=== PATIENT | male | born 1995 | race Caucasian/White ===

== ENCOUNTER 2022-05-17 09:36 | Emergency (ER) | payer MEDICAID, OTHER ==
[~2022-05-17] VITALS: Ht 175.3 cm; Wt 135.4 kg
[2022-05-17 09:40] VITALS: BP 117/54
--- NOTE | 2022-05-17 10:06 | NUR ---
ASSUMED PATIENT CARE, NURSING ASSESSMENT COMPLETED.
[2022-05-17 10:46] LABS: BASOPHILS % (AUTO) 0.4 % (0.0-2.0); EOSINOPHILS # (AUTO) 0.1 K/uL (0-0.4); EOSINOPHILS % (AUTO) 1.6 % (0.0-4.0); HEMATOCRIT 41.5 % (36-52); HEMOGLOBIN 13.9 g/dL (12.0-18.0); LYMPHOCYTES # (AUTO) 1.6 K/uL (2.0-11.5); LYMPHOCYTES % (AUTO) 20.6 % (20.5-51.1); MEAN CORPUSCULAR HEMOGLOBIN 29 pg (27-31); MEAN CORPUSCULAR HGB CONC 33 g/dL (33-37); MEAN CORPUSCULAR VOLUME 86.1 fL (80-94); MONOCYTES # (AUTO) 0.6 K/uL (0.8-1.0); MONOCYTES % (AUTO) 7.5 % (1.7-9.3); NEUTROPHILS # (AUTO) 5.5 K/uL (1.8-7.7); NEUTROPHILS % (AUTO) 69.9 % (42.2-75.2); PLATELET COUNT (AUTO) 199 K/uL (140-450); RED BLOOD CELL COUNT(AUTO) 4.81 MIL/uL (4.20-6.10); RED CELL DISTRIBUTION WIDTH 13.3 % (11.6-13.7); WHITE BLOOD COUNT (AUTO) 7.9 K/uL (4.8-10.8)
[2022-05-17 11:07] LABS: ALBUMIN 3.7 g/dL (3.4-5.0); ANION GAP 7.9 (8-16); CARBON DIOXIDE 29.8 mmol/L (21-32); CREATININE 0.8 mg/dL (0.6-1.3); POTASSIUM 3.7 mmol/L (3.5-5.1); TOTAL BILIRUBIN 0.7 mg/dL (0.0-1.0)
[2022-05-17 12:23] VITALS: BP 121/55
--- NOTE | 2022-05-17 13:12 | NUR ---
MD AT BEDSIDE, REEVALUATING PATIENT.
[2022-05-17] MEDS ORDERED: SULF-59 PO (13:18)
[2022-05-17] MEDS ORDERED: ACET-8905 PO (13:18)
--- NOTE | 2022-05-17 13:57 | NUR ---
Patient does not wish to proceed with medical care recommended by DR RIVERA. Patient given information related to possible complications, up to and including , which could occur as a result of leaving hospital at this time. Patient verbalizes understanding of risks involved leaving against medical advice. Patient has signed AMA form.
== END 2022-05-17 14:54 | disposition left against medical advice (07) ==
LOC: MED 09:36
DX: N49.2 Inflammatory disorders of scrotum (principal); Z79.899 Other long term (current) drug therapy
CPT/HCPCS: 36415; 74177; 76870; 80053; 85025; 99285; Q0092; Q9967